=== PATIENT | male | born 1980 | race Two or more races ===

== ENCOUNTER 2024-04-07 14:54 | Emergency (ER) | payer OTHER ==
[~2024-04-07] VITALS: Ht 180.3 cm; Wt 103.1 kg
[2024-04-07 15:11] VITALS: BP 141/97; PULSE 89; RESP 18; TEMP 97.3; O2SAT 97
[2024-04-07] MEDS: PERTUSS(ACELL),DIPH,TET/PF 0.5 ML SYRINGE [ADULT] IM. ONE (18:06)
[2024-04-07] MEDS: LIDOCAINE 1% 10 ML VIAL PERC ONE (18:39)
[2024-04-07] MEDS: CEPHALEXIN MONOHYDRATE 500 MG CAPSULE PO ONE (19:25)
[2024-04-07] MEDS: BACITRACIN 0.9 GM PACKET OINTMENT TP ONE (19:35)
[2024-04-07] MEDS ORDERED: CEPH-558 PO (20:59)
[2024-04-07] MEDS ORDERED: ACET-3385 PO (21:00)
== END 2024-04-07 20:44 | disposition home or self-care (01) ==
LOC: EMS 14:54
DX: S61.411A Laceration without foreign body of right hand, initial encounter (principal); W22.8XXA Striking against or struck by other objects, initial encounter; Y93.89 Activity, other specified; Y92.89 Other specified places as the place of occurrence of the external cause; Y99.0 Civilian activity done for income or pay
CPT/HCPCS: 99283; 73130; 90715; 90471; 12002; J3490